=== PATIENT | female | born 1965 | race Caucasian/White ===

== ENCOUNTER → 2016-11-26 | Outpatient (CLI) | payer OTHER ==
[~2016-11-26] MED LIST: LISINOPRIL30 MG PO; MAGIC MOUTHWASH; PRILOSEC OTC20 MG PO; TENORMIN 25 MG25 MG PO
== END ==
LOC: US 13:30
DX: R22.1 Localized swelling, mass and lump, neck (principal)
CPT/HCPCS: 76536

== ENCOUNTER → 2016-12-24 | Outpatient (CLI) | payer OTHER | LOC: RAD 10:34 | DX: R10.11 Right upper quadrant pain (principal) | CPT/HCPCS: 71020 ==